=== PATIENT | male | born 1960 | race Caucasian/White ===

== ENCOUNTER → 2017-02-24 | Outpatient (CLI) | payer OTHER ==
[2017-02-24 09:02] LABS: HEMOGLOBIN 15.7 gm/dl (14.0-17.5); RED BLOOD COUNT 5.12 M/UL (4.20-5.50); WHITE BLOOD COUNT 7.4 K/UL (4.5-11.0)
[2017-02-24 09:16] LABS: BUN/CREATININE RATIO 20 (0-10)
== END ==
LOC: LAB 07:25
PROVIDERS: Family Medicine
DX: J10.1 Influenza due to other identified influenza virus with other respiratory manifestations (principal); R52 Pain, unspecified
CPT/HCPCS: 36415; 80053; 85025

== ENCOUNTER → 2017-03-09 | Outpatient (CLI) | payer OTHER | LOC: LAB 07:19 | DX: E29.1 Testicular hypofunction (principal); R68.82 Decreased libido | CPT/HCPCS: 36415; 84403 ==